=== PATIENT | male | born 1990 | race Caucasian/White ===

== ENCOUNTER 2016-09-11 21:50 | Emergency (ER) | payer SELFPAY ==
[2016-09-11 22:01] VITALS: BP 148/99; PULSE 120; RESP 17; TEMP 98.1; O2SAT 99
--- NOTE | 2016-09-11 23:27 | ED PDOC ---
HPI: General Adult Time Seen by Provider: 09/11/16 22:15 Chief Complaint (Nursing): Medical Clearance History Per: Patient Additional Complaint(s): Pt. brought in by D for DUI and blood work. As per HPD pt. was found to have marijuana with him. Pt. offers no complaints at this time. Past Medical History Reviewed: Historical Data, Nursing Documentation, Vital Signs Vital Signs: Last Vital Signs Temp 98.1 F 09/11/16 21:59 Pulse 120 H 09/11/16 21:59 Resp 17 09/11/16 21:59 BP 148/99 H 09/11/16 21:59 Pulse Ox 99 09/11/16 21:59 - Family History Family History: States: No Known Family Hx - Immunization History Hx Tetanus Toxoid Vaccination: No (unknown) - Home Medications Home Medications: Ambulatory Orders Medication Instructions Recorded Cephalexin [Keflex] 500 mg PO QID #28 cap 11/07/14 oxyCODONE/Acetaminophen [Percocet 1 ea PO Q6H PRN #15 tab 11/07/14 5/325 mg Tab] - Allergies Allergies/Adverse Reactions: Allergies Allergy/AdvReac Type Severity Reaction Status Date / Time No Known Allergies Allergy Verified 11/07/14 04:50 Review of Systems ROS Statement: Except As Marked, All Systems Reviewed And Found Negative Physical Exam - Reviewed Nursing Documentation Reviewed: Yes Vital Signs Reviewed: Yes - Physical Exam Appears: Positive for: Well, Non-toxic, No Acute Distress Head Exam: Positive for: ATRAUMATIC, NORMAL INSPECTION, NORMOCEPHALIC Skin: Positive for: Normal Color, Warm. Negative for: Rash Eye Exam: Positive for: EOMI, Normal appearance, PERRL ENT: Positive for: Normal ENT Inspection Neck: Positive for: Normal, Painless ROM Cardiovascular/Chest: Positive for: Regular Rate, Rhythm Respiratory: Positive for: CNT, Normal Breath Sounds Gastrointestinal/Abdominal: Positive for: Normal Exam, Soft. Negative for: Tenderness Back: Positive for: Normal Inspection Extremity: Positive for: Normal ROM Neurologic/Psych: Positive for: Alert, Oriented, Gait (steady and unassisted). Negative for: Aphasia, Facial Droop - ECG O2 Sat by Pulse Oximetry: 99 Disposition - Clinical Impression Clinical Impression: General medical exam - Patient ED Disposition Is Patient to be Admitted: No - Disposition Disposition: Routine/Home Disposition Time: 23:28 Condition: STABLE Instructions: Normal Exam (ED)
== END 2016-09-11 23:45 | disposition home or self-care (01) ==
LOC: H.ER 21:50
DX: F10.129 Alcohol abuse with intoxication, unspecified (principal)